=== PATIENT | female | born 1995 | race Caucasian/White ===

== ENCOUNTER 2016-12-18 19:41 | Emergency (ER) | payer OTHER ==
[~2016-12-18] VITALS: Ht 165.1 cm; Wt 68.0 kg
[2016-12-18 19:42] VITALS: BP 148/92; PULSE 116; RESP 18; TEMP 98.4; O2SAT 97
[2016-12-18] MEDS ORDERED: ONDANSETRON ODT 4 MG TAB PO ONE (20:15)
[2016-12-18 20:24] VITALS: BP 134/76; PULSE 93; RESP 16; O2SAT 100
--- NOTE | 2016-12-18 20:26 | PD ---
HPI Chief Complaint: Syncope/Near-Syncope Time Seen by Provider: 20:19 Travel History International Travel<30 days: No Contact w/Intl Traveler<30days: No Traveled to known affect area: No History of Present Illness HPI 21-year-old female that presents to the ED for evaluation of nausea. Per patient she's had this nausea since this afternoon. Per patient she feels like she wants to vomit but she hasn't. What scared her the most was that she was having episodes of almost syncope. Per patient she actually hasn't passed out. Per patient she believes is because she hasn't eaten much because she has to work and she is starting. Per significant other she doesn't really eat much. She states that today she had some [employer] as well as a questionable hot dog and apparently most of the symptoms started after she ate a hot dog. She denies any bowel movement or urinary issues but states that she is feels nauseous. She denies . She denies any other medical problem. She states that currently she is using control. She states that her last period was last week and was normal. She states that she has some mild ache to the epigastric area but otherwise unremarkable. Per patient the pain if anything is 2 out of 10. Denies any chest pain or shortness of breath. No numbness, tilling, weakness. She has not vomited. She denies any sick contacts. No fevers chills or sweats. He makes the sensation better or worse. She does admit that she is able to keep fluids down. [facility] Past Medical History Medical History: Denies Significant Hx ?: Not LMP: 12/12/16 Past Surgical History Surgical History: No Previous Surgery Social History Alcohol Use: Yes (RARE) Tobacco Use: No Substance Use: No Allergies-Medications (Allergen,Severity, Reaction): Coded Allergies: No Known Allergies (Unverified , 12/18/16) Reported Meds & Prescriptions Reported Meds & Active Scripts Active No Active Prescriptions or Reported Medications Review of Systems General / Constitutional: No: Fever, Chills, Weight Gain, Weight Loss, Other Eyes: No: Diploplia, Blurred Vision, Photophobia, Drainage, Redness, Foreign Body Sensation, Pain, Tearing, Blind Spots, Visual changes, Blindness, Other HENT: Positive: Lightheadedness, No: Headaches, Vertigo, Sore Throat, Rhinitis , Rhinorrhea, Congestion, Nosebleed, Neck Stiffness, Neck Pain, Masses, Gingival Bleeding, Dental Difficulties, Ear Discharge, Earache, Other Cardiovascular: No: Chest Pain or Discomfort, Palpitations, Irregular Rhythm, Tachycardia, Diaphoresis, Syncope, Dyspnea on exertion, Varicosities, Edema, Cyanosis, Varicosities, Phlebitis, Claudication, Other Respiratory: No: Cough, Shortness of Breath, Wheezing, Sneezing, Orthopnea, Hemoptysis, Stridor, Night Sweats, Pleuritic Pain, Other Gastrointestinal: Positive: Nausea, Abdominal Pain, No: Vomiting, Diarrhea, Hematemesis, Hematochezia, Constipation, Changes in Bowel Habits, Indigestion, Dysphagia, Loss of Appetite, Other Genitourinary: No: Urgency, Frequency, Dysuria, Nocturia, Hematuria, Decreased Urinary Output, Oliguria, Hesitancy, Dribbling, Incontinence, Pelvic Pain, Flank Pain, Dyspareunia, Discharge, Dysmenorrhea, Menorrhagia, Metorrhagia, Vaginal Bleeding, Other Skin: No Rash, No Itching, No Dryness, No Lumps, No Hives, No Change in Pigmentation, No Change in nails, No Alopecia, No Lesions, No Breast Lumps, No Breast Tenderness, No Breast Swelling, No Other Neurologic: Positive: Syncope, No: Weakness, Dizziness, Focal Abnormalities, Coordination Problem, Tremor, Ataxia, Headache, Change in Mentation, Slurred Speech, Paresthesia, Incontinence, Seizures, Sensory Disturbance, Other Psychiatric: No: Anxiety, Depression, Suicidal Ideations, Disorder of Thought, Mood Disorder, Substance Abuse, Homicidal Ideation, Other Endocrine: No: Heat Intolerance, Cold Intolerance, Polyuria, Polydipsia, Other Hematologic/Lymphatic: No: Easy Bruising, Lymph Node Enlargement, Other Physical Exam Narrative GENERAL: SKIN: Warm and dry. HEAD: Atraumatic. Normocephalic. EYES: Pupils equal and round 4mm reactive to light and accomodation. No scleral icterus. No injection or drainage. ENT: No nasal bleeding or discharge. Mucous membranes pink and moist. Tongue is midline. No uvula deviation. NECK: Trachea midline. No JVD. CARDIOVASCULAR: Regular rate and rhythm. No murmurs, S3, S4. RESPIRATORY: No accessory muscle use. Clear to auscultation. Breath sounds equal bilaterally. GASTROINTESTINAL: Abdomen soft, non-tender, nondistended. Hepatic and splenic margins not palpable. MUSCULOSKELETAL: Extremities without clubbing, cyanosis, or edema. No obvious deformities. Full range of motion of the upper and lower extremities bilaterally. 2+ pulses bilaterally. NEUROLOGICAL: Awake and alert. No obvious cranial nerve deficits. Motor grossly within normal limits. Five out of 5 muscle strength in the arms and legs. Normal speech. PSYCHIATRIC: Appropriate mood and affect; insight and judgment normal. Data Data Last Documented VS Vital Signs Date Time Temp Pulse Resp B/P Pulse Ox O2 Delivery O2 Flow Rate FiO2 12/18/16 20:11 16 99 Room Air 12/18/16 19:42 98.4 116 148/92 Orders Ondansetron Odt (Zofran Odt) (12/18/16 20:15) Ed Urine Pregnancytest Poc (12/18/16 20:05) MDM Medical Decision Making Medical Screen Exam Complete: Yes Emergency Medical Condition: Yes Medical Record Reviewed: Yes Differential Diagnosis food poisoning vs nausea versus presyncope versus syncopal episode vs electrolyte abnormality versus normal exam versus Narrative Course 21-year-old female that presents to the ED for evaluation of nausea. Patient was properly examined and was found to have signs and symptoms consistent appears to be nausea. Unclear etiology. Patient also appears to have some presyncopal episodes. Her physical exam is reassuring. Initial heart was a slightly elevated put rechecked was normal. I offered the patient and blood work to rule out any sign of acute disease causing the nausea that might be missed. She completely declines blood work. She understands that without proper testing but cannot rule out acute disease. She understands. She did let us do a urine test which was negative. From a physical and history this appears to be likely food poisoning. At this time she would prefer for her dose to treat her nausea and see how she does. Patient was given Zofran with good results. Patient was able to tolerate liquids with no issues. Patient does feel improved. Patient will be given a prescription for Zofran. She understands that if anything worsens she is to come back. She is to take OTC meds as needed like Pepto-Bismol and keep hydrated. If she cannot keep anything by mouth she needs to come back. She agrees and understands. See ED worsening symptoms. Follow with PCP. Diagnosis Primary Impression: Nausea Additional Impression: Food poisoning Qualified Code: T62.91XA - Food poisoning, accidental or unintentional, initial encounter Patient Instructions: General Instructions Additional Instructions: You can take Pepto-Bismol [id number] to help with symptoms. Drink lots of fluids including Gatorade or water. See ED if any worsening symptoms. Follow up with PCP. Med/Other Pt SpecificInfo: Prescription(s) given Scripts No Active Prescriptions or Reported Meds Disposition: 01 DISCHARGE HOME Condition: Stable Kong Murphy Dec 18, 2016 20:26
[2016-12-18] MEDS ORDERED: ACETAMINOPHEN 325 MG TAB PO ONE (20:30)
[2016-12-18] MEDS ORDERED: ZOFR4TAB PO (20:40)
== END 2016-12-18 21:36 | disposition home or self-care (01) ==
LOC: NEPE 19:41
DX: R11.0 Nausea (principal); T62.91XA Toxic effect of unspecified noxious substance eaten as food, accidental (unintentional), initial encounter; R55 Syncope and collapse; X58.XXXA Exposure to other specified factors, initial encounter
CPT/HCPCS: 84703; 99284